=== PATIENT | female | born 1955 ===

== ENCOUNTER 2017-03-19 18:49 | Emergency (ER) | payer SELFPAY ==
[2017-03-19 19:04] VITALS: PULSE 81
--- NOTE | 2017-03-19 20:50 | ED PDOC ---
HPI: General Adult Time Seen by Provider: 03/19/17 20:23 Chief Complaint (Nursing): Breast Problem Chief Complaint (Provider): left breast irritation History Per: Patient History/Exam Limitations: no limitations Onset/Duration Of Symptoms: Days (3), Waxing/Waning Additional History Per: Patient Additional Complaint(s): 61 y/o female history of hypertension presents with intermittent left breast discomfort x 3 days. Patient describes symptoms as "electric shock", with associated itching. Denies fever, redness/swelling to breast, discharge from nipple, chest pain, shortness of breath, numbness/weakness of extremities. Patient had recent breast u/s and mammo 11/2016 after trauma to left breast; imaging showed likely hematomas and is supposed to have repeat imaging in [facility] to follow up. Past Medical History Reviewed: Historical Data, Nursing Documentation, Vital Signs Vital Signs: Last Vital Signs Temp 98.3 F 03/19/17 19:01 Pulse 81 03/19/17 19:01 Resp 18 03/19/17 19:01 BP 134/72 03/19/17 19:01 Pulse Ox 99 03/19/17 23:09 - Medical History PMH: HTN - Surgical History Surgical History: No Surg Hx - Family History Family History: States: No Known Family Hx - Living Arrangements Living Arrangements: With Family - Allergies Allergies/Adverse Reactions: Allergies Allergy/AdvReac Type Severity Reaction Status Date / Time Penicillins Allergy RASH Verified 03/19/17 19:31 Review of Systems ROS Statement: Except As Marked, All Systems Reviewed And Found Negative Skin: Positive for: Other (left breast discomfort) Physical Exam - Reviewed Nursing Documentation Reviewed: Yes Vital Signs Reviewed: Yes - Physical Exam Appears: Positive for: Well, Non-toxic, No Acute Distress Head Exam: Positive for: ATRAUMATIC, NORMAL INSPECTION, NORMOCEPHALIC Skin: Positive for: Normal Color Eye Exam: Positive for: Normal appearance ENT: Positive for: Normal ENT Inspection Cardiovascular/Chest: Positive for: Regular Rate, Rhythm, Other (left breast soft, nontender; no palpable nodules. No nipple discharge) Respiratory: Positive for: Normal Breath Sounds Gastrointestinal/Abdominal: Positive for: Normal Exam Back: Positive for: Normal Inspection Extremity: Positive for: Normal ROM Neurologic/Psych: Positive for: Alert, Oriented - ECG O2 Sat by Pulse Oximetry: 99 - Progress ED Course And Treament: accucheck, u/s EXAM: US Left Breast Complete CLINICAL HISTORY: 61 years old, female; Signs and symptoms; Other: Breast discomfort at 3 to 9 o' clock are TECHNIQUE: Static sonographic images of the left breast with image documentation utilizing a linear transducer. Imaging was obtained 3 to 9:00, retroareolar region, and the axillae. COMPARISON: MG - MAMMO DIGITAL SCREENING 11/10/2015 9:05:19 AM FINDINGS: Solid nodules: None. Cystic masses: None. Architectural distortion: None. Acoustical shadowing: None. Skin thickening: None. Axillary adenopathy: None. IMPRESSION: No sonographic evidence of malignancy in the left breast. Annual mammographic screening is recommended unless otherwise clinically indicated. Patient educated on findings, discharged with instructions to follow up PMD 2-3 days. Return to ED for worsening/concerning symptoms. Disposition - Clinical Impression Clinical Impression: Breast pain, left - Patient ED Disposition Is Patient to be Admitted: No Counseled Patient/Family Regarding: Studies Performed, Diagnosis, Need For Followup - Disposition Referrals: [facility] [Outside] [facility] [Outside[facility] Disposition: Routine/Home Disposition Time: 23:50 Condition: GOOD Instructions: Breast Self Exam for Women (ED) Print Language: BULGARIAN
[2017-03-20 00:15] VITALS: BP 133/74; RESP 16; TEMP 97.8; O2SAT 100
--- NOTE | 2017-03-20 10:39 | US ---
PROCEDURE: Targeted ultrasound left breast HISTORY: discomfort COMPARISON: 12/13/2016 TECHNIQUE: Standard protocol for this study/examination. FINDINGS: Cyst(s): None Breast mass: None Dilated ducts: None Parenchymal distortion: None Skin thickening or subcutaneous abnormalities: None IMPRESSION: BIRADS 1 (negative) Patient management should be based on findings on physical examination in the absence of either ultrasound and/or mammographic correlate. Concordant results (preliminary interpretation) provided by [facility]. Procedure Completed: 22:34 Preliminary ([facility]) Report: Dictated and Authenticated: 23:07 Final Interpretation: 10:36. March 20, 2017.
== END 2017-03-20 00:15 | disposition home or self-care (01) ==
LOC: H.ER 18:49
DX: N64.4 Mastodynia (principal); I10 Essential (primary) hypertension; Z88.0 Allergy status to penicillin

== ENCOUNTER 2018-04-13 15:49 | Emergency (ER) | payer SELFPAY ==
[2018-04-13 16:10] VITALS: RESP 16; BMI 30.1
--- NOTE | 2018-04-13 16:55 | ED PDOC ---
HPI: Hypertension/Hypotension Time Seen by Provider: 04/13/18 16:19 Chief Complaint (Nursing): High Blood Pressure Chief Complaint (Provider): high blood pressure History Per: Patient History/Exam Limitations: no limitations Onset/Duration Of Symptoms: Days (x2 weeks) Current Symptoms Are (Timing): Still Present Associated Symptoms: Headache. denies: Chest Pain, Dyspnea Additional Complaint(s): Tanisha Mayorga is a 62 year old female, with a past medical history of HTN and hypercholesterolemia, who presents to the emergency department complaining of high blood pressure associated with a headache, chills, nausea and mild dizziness onset for x2 weeks. Patient reports she was recently changed to Lisinopril HTC 4.5mg QD after her previous medication was causing her to have urinary frequency. Patient reports her doctor told since her blood pressure was stabilizing, he was going to lower dosage and change medication. However, ever since she started taking Lisinopril x2 weeks ago, she's been having elevated blood pressure and feeling flushed. Patient still has urinary frequency but denies any fever, chills, cough, congestion, chest pain, shortness of breath, vomit, diarrhea, abdominal pain, dysuria, weakness, numbness or tingling. No further medical complaints. PMD: Dr. Johnston, [facility]. Past Medical History Reviewed: Historical Data, Nursing Documentation, Vital Signs Vital Signs: Last Vital Signs Temp 98.6 F 04/13/18 16:09 Pulse 86 04/13/18 16:09 Resp 16 04/13/18 16:09 BP 153/83 H 04/13/18 16:09 Pulse Ox 99 04/13/18 16:09 - Medical History PMH: HTN, Hypercholesterolemia - Surgical History Surgical History: No Surg Hx - Family History Family History: States: Unknown Family Hx - Allergies Allergies/Adverse Reactions: Allergies Allergy/AdvReac Type Severity Reaction Status Date / Time No Known Allergies Allergy Verified 04/13/18 17:35 Review of Systems ROS Statement: Except As Marked, All Systems Reviewed And Found Negative Constitutional: Positive for: Chills. Negative for: Fever ENT: Negative for: Nose Congestion Cardiovascular: Negative for: Chest Pain Respiratory: Negative for: Cough, Shortness of Breath Gastrointestinal: Positive for: Nausea. Negative for: Vomiting, Abdominal Pain, Diarrhea Genitourinary Female: Positive for: Frequency. Negative for: Dysuria Neurological: Positive for: Headache, Dizziness (mild). Negative for: Weakness, Numbness (tingling) Physical Exam - Reviewed Nursing Documentation Reviewed: Yes Vital Signs Reviewed: Yes - Physical Exam Appears: Positive for: No Acute Distress Head Exam: Positive for: ATRAUMATIC, NORMAL INSPECTION, NORMOCEPHALIC Skin: Positive for: Normal Color, Warm, Dry. Negative for: Rash Eye Exam: Positive for: Normal appearance, EOMI, PERRL ENT: Positive for: Normal ENT Inspection Neck: Positive for: Painless ROM, Supple Cardiovascular/Chest: Positive for: Regular Rate, Rhythm. Negative for: Edema, Murmur Respiratory: Positive for: Normal Breath Sounds. Negative for: Respiratory Distress Gastrointestinal/Abdominal: Positive for: Normal Exam, Soft. Negative for: Tenderness, Guarding, Rebound Back: Positive for: Normal Inspection. Negative for: L CVA Tenderness, R CVA Tenderness, Vertebral Tenderness Extremity: Positive for: Normal ROM (upper and lower extremities). Negative for: Tenderness, Deformity, Swelling Neurologic/Psych: Positive for: Alert, Oriented, Gait (steady) - Laboratory Results Result Diagrams: 04/13/18 17:33 04/13/18 17:33 Interpretation Of Abn Labs: no acute - ECG ECG: Positive for: Interpreted By Me, Viewed By Me O2 Sat by Pulse Oximetry: 99 (RA) Pulse Ox Interpretation: Normal - CT Scan/US ct Other Rad Studies (CT/US): Read By Radiologist Other Rad Interpretation: no acute Medical Decision Making Medical Decision Making: Time: 16:19 Initial impression: Hypertension Initial Plan: --Head w/o contrast [CT] --EKG --BMP --Troponin I --CBC w/ differential --Reevaluation Scribe Attestation: Documented by Jaison Smith, acting as a scribe for Hugo Delarosa MD. Provider Scribe Attestation: All medical record entries made by the Scribe were at my direction and personally dictated by me. I have reviewed the chart and agree that the record accurately reflects my personal performance of the history, physical exam, medical decision making, and the department course for this patient. I have also personally directed, reviewed, and agree with the discharge instructions and disposition. Disposition - Clinical Impression Clinical Impression: Hypertension - Patient ED Disposition Is Patient to be Admitted: No Counseled Patient/Family Regarding: Studies Performed, Diagnosis, Need For Followup - Disposition Referrals: [facility] [Outside] - 04/15/18 Disposition: Routine/Home Disposition Time: 18:50 Condition: STABLE Additional Instructions: Return if not better in 3 days. Instructions: High Blood Pressure in Adults Print Language: PASHTO
--- NOTE | 2018-04-13 17:36 | CT ---
Date of service: 04/13/2018 PROCEDURE: CT HEAD WITHOUT CONTRAST. HISTORY: headache COMPARISON: No prior study available for comparison TECHNIQUE: Axial computed tomography images were obtained through the head/brain without intravenous contrast. Radiation dose: Total exam DLP = 786.88 mGy-cm. This CT exam was performed using one or more of the following dose reduction techniques: Automated exposure control, adjustment of the mA and/or kV according to patient size, and/or use of iterative reconstruction technique. FINDINGS: HEMORRHAGE: No acute parenchymal, subarachnoid or extra-axial hemorrhage. BRAIN: No evidence of large acute infarct. There is a very small focal area of low attenuation anterior margin left caudate head abutting the frontal horn that could represent tiny chronic lacunar type infarct. Additionally, there are small focal areas of low attenuation seen both inferolateral basal ganglia possibly representing dilated perivascular spaces or tiny chronic lacunar type infarcts.. No obvious parenchymal nor extra-axial mass or collection seen on this noncontrast exam. Mild generalized volume loss. VENTRICLES: No obstructive hydrocephalus. CALVARIUM: Calvarium appears intact PARANASAL SINUSES: Unremarkable as visualized. No significant inflammatory changes. MASTOID AIR CELLS: Unremarkable as visualized. No inflammatory changes. OTHER FINDINGS: Portions of the orbits and contents appear grossly unremarkable. IMPRESSION: No acute intracranial hemorrhage. No evidence of large acute infarct.. There is a very small focal area of low attenuation anterior margin left caudate head abutting the frontal horn that could represent tiny chronic lacunar type infarct. Additionally, there are small focal areas of low attenuation seen in the inferolateral margins of both basal nuclei which could represent dilated perivascular spaces or tiny chronic lacunar type infarcts. Mild generalized volume loss.
[2018-04-13 17:37] LABS: BASO % 0.4 % (0.0-2.0); EOS # 0.1 K/uL (0.0-0.7); EOS % 1.8 % (0.0-4.0); HEMOGLOBIN 13.7 g/dL (12.0-16.0); LYMPH # 1.7 K/uL (1.0-4.3); LYMPH % 25.2 % (20.0-40.0); MEAN CELL VOLUME 94.6 fl (81.0-99.0); MEAN CORPUSCULAR HEMOGLOBIN 31.1 pg (27.0-31.0); MEAN CORPUSCULAR HGB CONC 32.9 g/dL (33.0-37.0); MONO # 0.4 K/uL (0.0-0.8); MONO % 6.6 % (0.0-10.0); NEUT # 4.5 K/uL (1.8-7.0); NRBC % 0.1 % (0.0-0.0); RBC 4.4 Mil/uL (3.80-5.20); RED CELL DISTRIBUTION WIDTH 13.9 % (11.5-14.5); WHITE BLOOD COUNT 6.8 K/uL (4.8-10.8)
[2018-04-13 18:07] LABS: BLOOD UREA NITROGEN 16 mg/dl (7-17); CALCIUM 10.1 mg/dL (8.4-10.2); GFR NON-AFRICAN AMERICAN > 60
[2018-04-13 19:24] VITALS: BP 140/92; PULSE 75; TEMP 98.2; O2SAT 98
--- NOTE | 2018-04-14 02:53 | CARD ---
APPROVED REPORT Date of service: 04/13/2018 EKG Measurement Heart [id number] <Conclusion> Normal sinus rhythm Nonspecific T wave abnormality Abnormal ECG
== END 2018-04-13 19:25 | disposition home or self-care (01) ==
LOC: H.ER 15:49
DX: I10 Essential (primary) hypertension (principal); E78.00 Pure hypercholesterolemia, unspecified